=== PATIENT | male | born 1990 | race Caucasian/White ===

== ENCOUNTER 2018-10-04 09:32 | Emergency (ER) | payer OTHER ==
[~2018-10-04] VITALS: Ht 182.9 cm; Wt 79.4 kg
[~2018-10-04 09:32] MED LIST: ACETAMINOPHEN-1 EAC1 PO; AMBIEN 5 MG TABL5 M1 PO; CELEXA 20 MG TA20 MG; CLONAZEPAM; CLONAZEPAM 1 MG1 M1; FLEXERIL PO; FLOMAX PO; NAPROSYN500 MG PO; NORCO 5-325 TA1 EACH PO; PENICILLIN VK500 M1 PO; PENICILLIN VK500 MG PO; PERCOCET 5-3251 EACH PO; SUBOXONE 2 MG-1 EACH SL; ULTRAM 50MG TAB50 MG PO; XANAX 0.5 MG0.5 MG
[2018-10-04 09:47] LABS: URINE BILIRUBIN NEGATIVE (Negative); URINE BLOOD 3+ (Negative); URINE CLARITY CLEAR; URINE COLOR YELLOW; URINE GLUCOSE-RANDOM NEGATIVE (Negative); URINE KETONES NEGATIVE (Negative); URINE LEUKOCYTES-REFLEX NEGATIVE (Negative); URINE NITRITE-REFLEX NEGATIVE (Negative); URINE PROTEIN TRACE (Negative); URINE SPECIFIC GRAVITY >= 1.030 (1.005-1.030); URINE UROBILINOGEN 0.2 E.U./dl (0.2-1.0)
[2018-10-04 09:52] LABS: ABSOLUTE EOSINOPHILS 0.1 thou/uL (0.0-0.7); ABSOLUTE LYMPHOCYTES 1.4 thou/uL (0.8-5.3); ABSOLUTE MONOCYTES 0.4 thou/uL (0.0-1.2); ABSOLUTE NEUTROPHILS 3.1 thou/uL (1.6-8.1); BASOPHILS 0.7 %; EOSINOPHILS 1.5 %; HEMATOCRIT 44.2 % (42.0-52.0); HEMOGLOBIN 15.2 gm/dL (14.0-18.0); MCH 30.1 pg (26.0-34.0); MCHC 34.4 g/dL (28.0-37.0); MCV 87.4 fL (80.0-100.0); MONOCYTES 8.2 %; NUCLEATED RBCS 0 /100WBC; PLATELET COUNT* 278 thou/uL (150-400); POLYS 61.6 %; RBC 5.05 mil/uL (4.50-6.00); RDW-CV 13.2 % (10.5-14.5); WBC 5.1 thou/uL (4.0-11.0)
[2018-10-04 09:55] LABS: SQUAMOUS 0-3 Few /LPF (0-3)
[2018-10-04 09:56] LABS: URINE WBC-REFLEX 0-5 Rare /HPF (0-5)
[2018-10-04 09:57] LABS: MUCUS >6 Heavy strn/LPF (None Seen)
[2018-10-04 09:58] LABS: CASTS None Seen /LPF (None Seen); CRYSTALS None Seen /LPF (None Seen)
[2018-10-04 09:59] LABS: CALCIUM 9.2 mg/dL (8.5-10.1); CREATININE 1.1 mg/dL (0.6-1.3); POTASSIUM 3.8 mmol/L (3.5-5.1)
[2018-10-04 10:12] LABS: TOTAL BILIRUBIN 0.9 mg/dL (<0.1-1.0); TOTAL PROTEIN 7.5 g/dL (6.4-8.2)
[2018-10-04] MEDS ORDERED: FLOMAX0.4 MG PO (11:01)
[2018-10-04] MEDS ORDERED: CIPROFLOXACIN500 M1 PO (11:01)
[2018-10-04] MEDS ORDERED: PERCOCET 5-3251 EACH PO (11:01)
[2018-10-04 11:07] VITALS: BP 116/68
== END 2018-10-04 11:09 | disposition home or self-care (01) ==
LOC: M.ERS 09:32
PROVIDERS: Family Medicine
DX: N20.0 Calculus of kidney (principal); F17.200 Nicotine dependence, unspecified, uncomplicated; F41.0 Panic disorder [episodic paroxysmal anxiety]

== ENCOUNTER 2018-11-22 13:08 | Emergency (ER) | payer OTHER ==
[~2018-11-22] VITALS: Ht 182.9 cm; Wt 81.7 kg
[~2018-11-22 13:08] MED LIST changes: +CIPROFLOXACIN500 M1 PO; +FLOMAX0.4 MG PO
[2018-11-22 13:24] LABS: URINE BILIRUBIN NEGATIVE (Negative); URINE BLOOD 3+ (Negative); URINE CLARITY CLEAR; URINE COLOR YELLOW; URINE GLUCOSE-RANDOM NEGATIVE (Negative); URINE KETONES NEGATIVE (Negative); URINE LEUKOCYTES-REFLEX NEGATIVE (Negative); URINE NITRITE-REFLEX NEGATIVE (Negative); URINE PROTEIN NEGATIVE (Negative); URINE SPECIFIC GRAVITY >= 1.030 (1.005-1.030); URINE UROBILINOGEN 0.2 E.U./dl (0.2-1.0)
[2018-11-22 13:30] LABS: BACTERIA-REFLEX 1-9 Few /HPF (None Seen); SQUAMOUS NONE SEEN /LPF (0-3); URINE RBC >20 Many /HPF (0-2); URINE WBC-REFLEX 0-5 Rare /HPF (0-5)
[2018-11-22 13:31] LABS: CRYSTALS None Seen /LPF (None Seen); HYALINE CASTS 0-3 Few /LPF (None Seen); MUCUS 4-6 Moderate strn/LPF (None Seen)
[2018-11-22 13:32] LABS: ABSOLUTE EOSINOPHILS 0.2 thou/uL (0.0-0.7); ABSOLUTE LYMPHOCYTES 1.6 thou/uL (0.8-5.3); ABSOLUTE MONOCYTES 0.8 thou/uL (0.0-1.2); ABSOLUTE NEUTROPHILS 5.6 thou/uL (1.6-8.1); BASOPHILS 0.4 %; EOSINOPHILS 1.9 %; HEMATOCRIT 42.2 % (42.0-52.0); HEMOGLOBIN 14.5 gm/dL (14.0-18.0); LYMPHOCYTES 19.7 %; MCH 30.1 pg (26.0-34.0); MCHC 34.3 g/dL (28.0-37.0); MCV 87.9 fL (80.0-100.0); MONOCYTES 9.5 %; MPV 7.9 fl. (7.2-11.1); NUCLEATED RBCS 0 /100WBC; PLATELET COUNT* 252 thou/uL (150-400); POLYS 68.5 %; RDW-CV 13.2 % (10.5-14.5); WBC 8.1 thou/uL (4.0-11.0)
[2018-11-22 13:37] LABS: CALCIUM 8.6 mg/dL (8.5-10.1); CREATININE 1.3 mg/dL (0.6-1.3); POTASSIUM 3.8 mmol/L (3.5-5.1)
[2018-11-22 13:41] LABS: ALBUMIN 3.5 g/dL (3.4-5.0); TOTAL BILIRUBIN 0.7 mg/dL (<0.1-1.0); TOTAL PROTEIN 6.7 g/dL (6.4-8.2)
[2018-11-22] MEDS ORDERED: ONDANSETRON HCL4 M2 PO (14:36)
[2018-11-22] MEDS ORDERED: FLOMAX0.4 MG PO (14:36)
[2018-11-22] MEDS ORDERED: PERCOCET PO (14:36)
[2018-11-22] MEDS ORDERED: IBUPROFEN 800800 M1 PO (14:36)
[2018-11-22] MEDS ORDERED: CIPRO500 M1 PO (14:36)
[2018-11-22 14:43] VITALS: BP 107/60
== END 2018-11-22 14:45 | disposition home or self-care (01) ==
LOC: M.ERS 13:08
PROVIDERS: Nurse Practitioner Family
DX: N13.2 Hydronephrosis with renal and ureteral calculous obstruction (principal); F41.9 Anxiety disorder, unspecified; Z87.442 Personal history of urinary calculi

== ENCOUNTER 2019-12-18 21:04 | Emergency (ER) | payer OTHER, MEDICAID ==
[~2019-12-18] VITALS: Ht 182.9 cm; Wt 83.9 kg
[~2019-12-18 21:04] MED LIST changes: +CIPRO500 M1 PO; +IBUPROFEN 800800 M1 PO; +ONDANSETRON HCL4 M2 PO; +PERCOCET PO
[2019-12-18] MEDS ORDERED: NORCO 5-325 TA1 EAC2 PO (22:54)
[2019-12-18] MEDS ORDERED: FLEXERIL PO (22:54)
[2019-12-18 23:04] VITALS: BP 135/65
== END 2019-12-18 23:06 | disposition home or self-care (01) ==
LOC: M.ERS 21:04
DX: S39.012A Strain of muscle, fascia and tendon of lower back, initial encounter (principal); M25.561 Pain in right knee; M54.2 Cervicalgia; V43.54XA Car driver injured in collision with van in traffic accident, initial encounter; Y93.89 Activity, other specified; Y92.89 Other specified places as the place of occurrence of the external cause; Y99.8 Other external cause status